=== PATIENT | male | born 1990 | race Caucasian/White ===

== ENCOUNTER 2018-04-26 18:09 | Emergency (ER) | payer OTHER ==
[2018-04-26] MEDS ORDERED: Rabies Vaccine (RabAvert)* 2.5 UNITS VIAL IM ONE ×2 (19:54→20:04)
[2018-04-26] MEDS ORDERED: Rabies Immune Globulin 10 ML* 150 UNIT/ML VIAL IM ONE (20:06)
[2018-04-26] MEDS ORDERED: Amoxicillin/Clavulanate TAB* 875 MG PO ONE (20:58)
--- NOTE | 2018-04-26 20:59 | ED ---
Bite Injury/Animal - HPI Summary HPI Summary: Patient complains of possible bat bite on right lower extremity, and waking up with bat in the room. Denies any other symptoms. Medical history is none. - History of Current Complaint Chief Complaint: EDAnimalBite Stated Complaint: BITE ON RT LEG Time Seen by Provider: 04/26/18 18:52 Hx Obtained From: Patient Onset of Injury: Happened hours ago Type of Bite: Animal Severity Currently: Mild Pain Intensity: 4 Pain Scale Used: 0-10 Numeric - Allergies/Home Medications Allergies/Adverse Reactions: Allergies Allergy/AdvReac Type Severity Reaction Status Date / Time cefuroxime Allergy Hives Verified 04/26/18 18:29 Home Medications: Home Medications Ranitidine TAB (NF) [Zantac TAB (NF)] 150 mg PO DAILY 04/26/18 [History Confirmed 04/26/18] PMH/Surg Hx/FS Hx/Imm Hx Endocrine/Hematology History: Denies: Hx Anticoagulant Therapy Cardiovascular History: Denies: Hx Cardiac Arrest History: Denies: Hx Dialysis Neurological History: Denies: Hx CVA Infectious Disease History: No Infectious Disease History: Denies: Traveled Outside the [place] in Last 30 Days - Social History Alcohol Use: Occasionally Substance Use Type: Reports: None Smoking Status (MU): Never Smoked Tobacco Review of Systems Constitutional: Negative Eyes: Negative ENT: Negative Cardiovascular: Negative Respiratory: Negative Gastrointestinal: Negative Genitourinary: Negative Musculoskeletal: Negative Skin: Other Neurological: Negative Psychological: Normal All Other Systems Reviewed And Are Negative: Yes Physical Exam - Summary Physical Exam Summary: Wound on the lateral right calf with small eklutna of erythema locally. Triage Information Reviewed: Yes Vital Signs On Initial Exam: Initial Vitals Temp Pulse Resp BP Pulse Ox 98.6 F 70 18 167/80 98 04/26/18 18:12 04/26/18 18:12 04/26/18 18:12 04/26/18 18:12 04/26/18 18:12 Vital Signs Reviewed: Yes Appearance: Positive: Well-Appearing Skin: Positive: Warm Head/Face: Positive: Normal Head/Face Inspection Eyes: Positive: Normal ENT: Positive: Normal ENT inspection Neck: Positive: Supple Respiratory/Lung Sounds: Positive: Clear to Auscultation Cardiovascular: Positive: Normal Abdomen Description: Positive: Nontender Musculoskeletal: Positive: Normal Neurological: Positive: Normal Psychiatric: Positive: Normal AVPU Assessment: Alert - Vj Coma Scale Best Eye Response: 4 - Spontaneous Best Motor Response: 6 - Obeys Commands Best Verbal Response: 5 - Oriented Coma Scale Total: 15 Diagnostics - Vital Signs Vital Signs Temp Pulse Resp BP Pulse Ox 04/26/18 18:12 98.6 F 70 18 167/80 98 - Laboratory Lab Statement: Any lab studies that have been ordered have been reviewed, and results considered in the medical decision making process. Bite Injury Course/Dx - Course Course Of Treatment: Patient complains of possible bat bite on right lower extremity, and waking up with bat in the room. Denies any other symptoms. Medical history is none. Physical exam:Wound on the lateral right calf with small eklutna of erythema locally. Discussed patient with [facility] Shaila Montilla who recommended initiating rabies prophylaxis. Patient will be contacted tomorrow to determine whether he'll follow-up for with many shots with [facility] or health department. - Diagnoses Provider Diagnosis: Bat bite wound, Rabies exposure Discharge - Sign-Out/Discharge Documenting (check all that apply): Patient Departure - Discharge Plan Condition: Stable Disposition: HOME Prescriptions: Amoxicillin/Clavulanate TAB* [Augmentin TAB 875*] 875 mg PO BID #20 tab Patient Education Materials: Rabies Vaccine (By injection), Rabies Immune Globulin (By injection), Animal Bite (ED), Rabies (ED) Referrals: [facility] GARCIA [Primary Care Provider] - Additional Instructions: Nursing staff from [facility] will call you tomorrow morning to determine whether you'll get follow-up treatment at [facility] or at the health department. Take antibiotics if they consider this necessary. Return to the ED for any new or worsening symptoms - Billing Disposition and Condition Condition: STABLE Disposition: Home
[2018-04-26] MEDS ORDERED: Tetan/Diph/Pertus SYR(Tdap)* 0.5 ML SYR(BOOSTRIX) use SYR IM ONE ×2 (21:37→22:00)
[2018-04-26 22:04] VITALS: BP 148/80
== END 2018-04-26 22:03 | disposition home or self-care (01) ==
LOC: ED 18:09
DX: S81.851A Open bite, right lower leg, initial encounter (principal); W55.81XA Bitten by other mammals, initial encounter; Y92.9 Unspecified place or not applicable; Z23 Encounter for immunization; Z88.8 Allergy status to other drugs, medicaments and biological substances
CPT/HCPCS: 90375; 90471; 90675; 90715; 96372; 99282; A9270-GY